=== PATIENT | female | born 1965 | race Caucasian/White ===

== ENCOUNTER → 2018-09-18 15:10 | Outpatient (CLI) | payer OTHER, SELFPAY ==
--- NOTE | 2018-09-18 | DI.MG.S_ITS ---
BILATERAL DIGITAL SCREENING MAMMOGRAM 3D/2D WITH CAD: 09/18/2018 CLINICAL: Routine screening. Comparison is made to exams dated: 09/14/2016 mammogram and 09/22/2011 mammogram - [facility]. The tissue of both breasts is heterogeneously dense. This may lower the sensitivity of mammography. Current study was also evaluated with a Computer Aided Detection (CAD) system. No significant masses, calcifications, or other findings are seen in either breast. There has been no significant interval change. IMPRESSION: NEGATIVE There is no mammographic evidence of malignancy. A 1 year screening mammogram is recommended. This exam was interpreted at Station ID: [id number]. NOTE: For mammograms, a report in lay terms will be sent to the patient. Approximately 15% of breast malignancies will not be visualized mammographically. In the management of a palpable breast mass, a negative mammogram must not discourage biopsy of a clinically suspicious lesion. Electronically Signed By: Tamia donnelly/ayaz:09/18/2018 16:55:33 letter sent: Normal Exam ACR BI-RADS Category 1: Negative [id number]
== END ==
PROVIDERS: PCP Family Medicine; Visit Provider Family Medicine
DX: Z12.31 Encounter for screening mammogram for malignant neoplasm of breast (principal)
CPT/HCPCS: 77063; 77067

== ENCOUNTER 2018-11-18 14:23 | Emergency (ER) | payer OTHER, SELFPAY ==
[2018-11-18 16:23] VITALS: BP 148/101; PULSE 93; RESP 16; TEMP 36.9; O2SAT 99
--- NOTE | 2018-11-18 16:34 | DI.RAD.S_ITS ---
PROCEDURE: XR CERVICAL SPINE 2V OR 3V INDICATIONS: neck pain, slipped disk TECHNIQUE: 3 views of the cervical spine were acquired. COMPARISON: None. FINDINGS: Bones: No fractures or dislocations to the T1 level. The lateral masses of C1 appear intact on the odontoid view. There is straightening of the cervical lordosis. There is minimal anterolisthesis at C4-C5 and T1-T2. There is minimal retrolisthesis at C5-C6. Multilevel disc space narrowing is demonstrated including moderate narrowing at C5-C6 with endplate osteophytosis and sclerosis. There is also mild multilevel facet arthropathy. No suspicious bony lesions. Soft tissues: No prevertebral soft tissue swelling. IMPRESSION: 1. No fracture or subluxation. 2. Multilevel degenerative changes including moderate degenerative disc disease at C5-C6. Dictated by: Donell Johnson M.D. on 11/18/2018 at 16:13 Approved by: Donell Johnson M.D. on 11/18/2018 at 16:14
[2018-11-18 18:14] VITALS: BP 140/79; PULSE 74; RESP 16
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
== END 2018-11-18 18:14 | disposition home or self-care (01) ==
PROVIDERS: Emergency Provider Internal Medicine; PCP Family Medicine
DX: M54.12 Radiculopathy, cervical region (principal); S46.812A Strain of other muscles, fascia and tendons at shoulder and upper arm level, left arm, initial encounter; R20.0 Anesthesia of skin
CPT/HCPCS: 72040; 93005; 99282; 99284

== ENCOUNTER → 2018-12-05 16:05 | Outpatient (CLI) | payer OTHER, SELFPAY ==
--- NOTE | 2018-12-05 16:06 | DI.MRI.S_ITS ---
PROCEDURE: MR CERVICAL SPINE WO CON INDICATIONS: Neck stiffness. Left shoulder pain radiating down left arm TECHNIQUE: Noncontrast sagittal T1 spin echo and T2 fast spin echo, sagittal STIR, foraminal oblique sagittal T2 fast spin echo, and axial gradient echo or T2 fast spin echo through the cervical spine. COMPARISON: [facility], CR, XR CERVICAL SPINE 2V OR 3V, 11/18/2018, 16:40. FINDINGS: Image quality: Diagnostic, with note made of motion artifact. Alignment and Curvature: There is straightening of the normal cervical lordosis. Minimal retrolisthesis is seen at the C5-C6 level. Bone Marrow: Marrow demonstrates normal overall signal. Spinal Cord: Visualized spinal cord has normal size and signal. No cerebellar tonsillar herniation. Paraspinous Soft Tissues: No paravertebral masses. Prevertebral soft tissues are normal in thickness. C2-C3: Normal appearance. C3-C4: Mild loss of disc height is seen. Loss of disc signal is seen. Mild to moderate disc osteophyte complex is seen, which is eccentric to the left. There is mild left-sided and moderate right-sided facet hypertrophy seen. There is moderate to severe left-sided neural foraminal narrowing. No right-sided neural foraminal narrowing. No significant central canal narrowing is seen. C4-C5: The disc height is well-preserved. Loss of disc signal is seen at this level. A mild degree of generalized disc osteophyte complex is seen. There is mild right-sided and moderate left-sided facet hypertrophy seen. There is moderate to severe left-sided and minimal right-sided neural foraminal narrowing seen. No central canal narrowing is seen. C5-C6: Moderate loss of disc height is seen. Loss of disc signal is seen. At least moderate disc osteophyte complex is seen. Moderate facet joint hypertrophy is seen. There is moderate right-sided and moderate to severe left-sided neural foraminal narrowing seen. Moderate to severe central canal narrowing is seen, with associated mass effect on the ventral spinal cord. C6-C7: The disc height is well-preserved. Loss of disc signal is seen at this level. Mild to moderate disc osteophyte complex is seen. There is moderate left-sided and no right-sided neural foraminal narrowing. No significant central canal narrowing is seen. C7-T1: The disc height is well-preserved. Loss of disc signal is seen at this level. A mild degree of generalized disc osteophyte complex is seen. There is mild to moderate right-sided and no significant left-sided neural foraminal narrowing seen. The central canal is widely patent. IMPRESSION: Multiple levels of cervical spine degenerative change are seen, which are most prominent at the C5-C6 level. Dictated by: Ezra Barton M.D. on 12/05/2018 at 16:57 Approved by: Ezra Barton M.D. on 12/05/2018 at 17:01
== END ==
PROVIDERS: PCP Family Medicine; Visit Provider Family Medicine
DX: M43.6 Torticollis (principal); M47.22 Other spondylosis with radiculopathy, cervical region; M25.512 Pain in left shoulder
CPT/HCPCS: 72141

== ENCOUNTER 2019-03-18 09:50 | Day surgery (SDC) | payer OTHER, SELFPAY ==
[2019-03-18] MEDS: SODIUM CHLORIDE 0.9% 1,000 ML 200 ML IV (10:27)
[2019-03-18 10:29] VITALS: BMI 25.7
[2019-03-18 10:33] VITALS: BP 122/84; PULSE 71; RESP 16; TEMP 36.6; O2SAT 99
--- NOTE | 2019-03-18 11:00 | PM.HP.1 ---
History of Present Illness Date Patient Seen: 03/18/19 Time Patient Seen: 11:00 Chief complaint: [id number] Narrative: The patient is a woman here for her 1st screening colonoscopy. No family history of colon cancer. Patient History Medical History No pertinent past medical history (Chronic) Surgical History History of removal of ovarian cyst (Resolved) Status post hysterectomy (Resolved) Social History household members: spouse Smoking Status: Never smoker Family & Social History Social History: household members spouse Tobacco & Substance use: Smoking Status Never smoker alcohol intake frequency 0-2 drinks per day Meds Home Medications Medication Instructions Recorded Confirmed Type conjugated estrogens [Premarin] 0.625 mg VAGINAL TID 03/18/19 03/18/19 History Allergies Allergy/AdvReac Type Severity Reaction Status Date / Time erythromycin base AdvReac nausea, Verified 03/18/19 10:23 vomiting, and stomach cramps Review of Systems Review of Systems All systems reviewed & are unremarkable except as noted in HPI and below Exam Vital Signs (past 8 hours): - 03/18/19 10:33 Temperature 97.9 F Pulse Rate 71 Respiratory Rate 16 Blood Pressure 122/84 Pulse Oximetry 99 Oxygen Delivery Method Room Air Narrative Exam Narrative: Pleasant cooperative patient no apparent distress. Lungs are clear to auscultation. No rales or rhonchi. Heart regular rate and rhythm no murmur gallop. Abdomen is soft nontender without mass. No obvious hernias. Patient is alert and oriented x3. Assessment & Plan Assessment & Plan narrative: The patient for a screening colonoscopy. I have discussed the procedure with them. Risks of bleeding, perforation which would necessitate major operation, failure to find remove all lesions, the potential tattoo were all discussed. All questions were answered. They wished to proceed.
--- NOTE | 2019-03-18 11:02 | PM.PREOP ---
Pre-operative Note Interval Note History & Physical reviewed/Exam performed by Physician: Yes Changes to H&P: No ASA Class (for procedural sedation): I
[2019-03-18] MEDS: fentaNYL 250 MCG/5 ML INJ IV (11:20)
[2019-03-18] MEDS: MIDAZOLAM 5 MG/5 ML VIAL IV (11:21)
[2019-03-18] MEDS: GLUCAGON,HUMAN RECOMBINANT 1 MG/ML VIAL IV (11:27)
--- NOTE | 2019-03-18 11:51 | PM.OP.ENDO ---
Operative Date/Time/Diagnoses Date of procedure: 03/18/19 Time of procedure: 11:51 Pre-op diagnosis: Screening exam. This is her 1st colonoscopy. She is 53 years of age. Post-op diagnosis: same (Sigmoid diverticulosis with significant tortuosity) Procedure & Clinicians Study performed: Colonoscopy Same procedure as scheduled: Yes Indications: Screening Surgeon: Matthew Hall Procedure Notes SCOAP/Timeout: Performed Procedure in detail: The patient was placed in the left lateral decubitus position and underwent IV sedation directed by the surgeon consisting of fentanyl and Versed. Digital exam was unremarkable. The scope was inserted and advanced through the rectum into the sigmoid. I encountered a very sharp turn at this level. After about 10 minutes trying to get around this coronary backed the scope out slowly. I then inserted a pediatric scope and gave the patient glucagon. The patient had been repositioned and I did that once again. This time of is able to get through the tortuous area of the colon. I continued on into the Descending, transverse, and ascending colon. No lesions were seen. The cecum was reached identified by the ileocecal valve and the appendiceal opening. The ileocecal valve was successfully cannulated. The terminal ileum was normal in appearance. The scope was gradually brought out. No Polyps were found. The scope ultimately was retroflexed in the rectum. The appearance was normal except for some very minor scarring. The scope was removed and the patient tolerated the procedure well. Prep was excellent Scope withdrawal time: 10.5 minutes Sedation minutes: 41 Findings: diverticulosis (Sigmoid with tortuosity) Specimen(s): none sent Complications: none Recommendations: Colonscopy in 10 years Follow up: as needed Disposition: PACU
[2019-03-18 11:54] VITALS: BP 133/85; PULSE 84; RESP 14; TEMP 36.7; O2SAT 100
[2019-03-18 11:59] VITALS: BP 121/71; PULSE 64; RESP 16; TEMP 36.4; O2SAT 100
[2019-03-18 12:11] VITALS: BP 120/80; PULSE 77; RESP 16; TEMP 36.2; O2SAT 100
== END 2019-03-18 12:30 | disposition home or self-care (01) ==
PROVIDERS: PCP Family Medicine; Visit Provider Specialist
PROC: 0DJD8ZZ Inspection of Lower Intestinal Tract, Via Natural or Artificial Opening Endoscopic (ICD-10-PCS; CPT 45378; principal; 2019-03-18 10:45)
DX: Z12.11 Encounter for screening for malignant neoplasm of colon (principal); K57.30 Diverticulosis of large intestine without perforation or abscess without bleeding
CPT/HCPCS: 45378; 99152; 99153; J1610; J2250; J3010

== ENCOUNTER → 2020-01-23 11:03 | Outpatient (CLI) | payer OTHER, SELFPAY ==
--- NOTE | 2020-01-23 | DI.US.S_ITS ---
LIMITED ULTRASOUND OF LEFT BREAST: 01/23/2020 CLINICAL: Palpable left breast lump. Comparison is made to exams dated: 01/23/2020 mammogram, 09/18/2018 mammogram - [facility], 09/14/2016 mammogram, 09/29/2011 ultrasound, 09/22/2011 mammogram, and 09/12/2010 mammogram - [facility]. Real-time ultrasound of the left breast 11 o'clock, and retroareolar regions was performed on the area of interest. There is a benign 0.5 cm x 0.4 cm x 0.5 cm oval cyst in the left breast at 11 o'clock anterior depth. This oval cyst is anechoic with a well-defined boundary and posterior acoustic enhancement. This correlates to the reported area of palpable abnormality. Color flow imaging demonstrates that there is no vascularity present. IMPRESSION: BENIGN There is no sonographic evidence of malignancy. The 0.5 cm x 0.4 cm x 0.5 cm oval cyst in the left breast is consistent with a simple cyst and is benign. Clinical followup is recommended for patient's pain and palpable symptoms. A 1 year screening mammogram is recommended. This exam was interpreted at Station ID: [id number]. Electronically Signed By: Donell Johnson M.D. ddp/:01/23/2020 12:32:05 letter sent: Clinical Evaluation Ultrasound BI-RADS: 2 Benign
--- NOTE | 2020-01-23 | DI.MG.S_ITS ---
BILATERAL DIGITAL DIAGNOSTIC MAMMOGRAM 3D/2D: 01/23/2020 CLINICAL: Left breast lump. Comparison is made to exams dated: 09/18/2018 mammogram - [facility], 09/14/2016 mammogram, and 09/22/2011 mammogram - [facility]. The tissue of both breasts is heterogeneously dense. This may lower the sensitivity of mammography. No significant masses, calcifications, or other findings are seen in either breast. IMPRESSION: INCOMPLETE: NEEDS ADDITIONAL IMAGING EVALUATION There is no abnormality seen in the left breast to correspond with the palpable abnormality and pain in the sub-areolar depth, however, ultrasound is recommended. This exam was interpreted at Station ID: [id number]. NOTE: For mammograms, a report in lay terms will be sent to the patient. Approximately 15% of breast malignancies will not be visualized mammographically. In the management of a palpable breast mass, a negative mammogram must not discourage biopsy of a clinically suspicious lesion. Electronically Signed By: Donell parada/ayaz:01/23/2020 12:15:17 ACR BI-RADS Category 0: Incomplete [id number]
== END ==
PROVIDERS: PCP Family Medicine; Referring Provider Physician Assistant Medical; Visit Provider Physician Assistant Medical
DX: R92.8 Other abnormal and inconclusive findings on diagnostic imaging of breast (principal); N60.02 Solitary cyst of left breast
CPT/HCPCS: 76642; 77066; G0279

== ENCOUNTER → 2020-09-21 11:01 | Outpatient (CLI) | payer OTHER, SELFPAY ==
--- NOTE | 2020-09-21 | DI.US.S_ITS ---
PROCEDURE: US ABDOMEN COMPLETE INDICATIONS: Periumbilical pain TECHNIQUE: Real-time scanning was performed of the abdominal and retroperitoneal organs, with image documentation. COMPARISON: None. FINDINGS: Liver: Liver is normal in size and homogeneous in echotexture. Gallbladder: Appears normal Biliary ducts: Intrahepatic bile ducts are non-dilated. Extrahepatic bile duct caliber measures 4 mm. Normal is 6-7 mm or less in diameter, or 10 mm or less post-cholecystectomy. Pancreas: Visualized portions of the pancreas are sonographically normal. Spleen: Spleen is normal in size and homogeneous in echotexture. Kidneys: Kidneys are normal in size and echotexture. Right kidney measures 9.8 cm long; left kidney measures 12.8 cm long. No hydronephrosis or nephrolithiasis. No solid masses. Aorta: Visualized aorta is normal in caliber at less than 3 cm. Iliacs: Proximal common iliac arteries are normal in caliber at less than 2.5 cm. IVC: Intrahepatic inferior vena cava is patent. Miscellaneous: No free abdominal fluid. Note is made of a periumbilical hernia containing what appears to be omentum, which the patient reports is less tender and smaller in size than approximately 1 week ago. This area of current herniation measures up to 3.1 x 3.3 x 4.7 cm. IMPRESSION: Periumbilical hernia, likely containing fat such as omentum, is present measuring up to 3.1 x 3.3 x 4.7 cm. Focal hyperemia not seen, nor is associated focal tenderness but tenderness was present according to the patient at this site last week. Dictated by: Chaitanya Stacy M.D. on 09/21/2020 at 13:33 Approved by: Chaitanya Stacy M.D. on 09/21/2020 at 13:41
== END ==
PROVIDERS: PCP Family Medicine; Referring Provider Family Medicine; Visit Provider Physician Assistant
DX: R10.33 Periumbilical pain (principal); K42.9 Umbilical hernia without obstruction or gangrene
CPT/HCPCS: 76700

== ENCOUNTER 2020-11-08 09:26 | Day surgery (SDC) | payer OTHER, SELFPAY ==
[2020-11-08] VITALS (7 sets, daily range): BP systolic 121–143; BP diastolic 80–90; PULSE 66–103; RESP 10–17; TEMP 36.1–37.1; O2SAT 97–100; BMI 23.2
[2020-11-08] MEDS: SCOPOLAMINE 1 PATCH TOP (09:51)
[2020-11-08] MEDS: ACETAMINOPHEN 325 MG TABLET 975 MG PO (09:51)
--- NOTE | 2020-11-08 10:05 | PM.PREOP ---
Pre-operative Note COVID-19 COVID-19 status: Negative Interval Note History & Physical reviewed/Exam performed by Physician: Yes Changes to H&P: No
[2020-11-08] MEDS: CEFAZOLIN 2 GM/100 ML FROZ.PIGGY IV (10:18)
--- NOTE | 2020-11-08 10:28 | SUR.OPER ---
Supine on padded OR bed, head on pillow, arms secured on padded arm boards at <90 degrees abduction, legs uncrossed, safety belt at thigh, tape over blanket over lower legs.
[2020-11-08] MEDS: BUPIVACAINE 0.5% W/ EPI (PF) 30 ML VIAL INJ (10:34)
[2020-11-08] MEDS: BUPIVACAINE LIPOSOME 266 MG/20 ML VIAL INJ (10:52)
--- NOTE | 2020-11-08 11:38 | PM.OP.1 ---
Operative Date/Time/Diagnoses Date of procedure: 11/08/20 Time of procedure: 11:38 Pre-op diagnosis: Non reducible ventral hernia Post-op diagnosis: other (Ventral hernia with incarcerated preperitoneal fat, with 3 ventral hernia defects, 2 cm x 2 cm in total) Procedure & Clinicians Procedure: Open repair of 3 ventral hernia defects with incarcerated fat Same procedure as scheduled: Yes Indications: Painful non reducible ventral hernia Surgeon: Felecia Mckeon Click Yes if Unassisted: Yes Anesthesia Type: General Operative Notes Findings: Three hernia defects in the ventral midline just superior to the umbilicus, 2 cm x 2 cm in aggregate, with incarcerated preperitoneal fat. Specimen(s): none sent Prosthetic devices, grafts, tissues, transplants, or devices: Bard 8.4 cm Ventralex mesh Estimated Blood Loss (mL): 2 Procedure in detail: The patient was brought to the operating room, placed supine on the operating table, and sequential compression devices were placed on both legs and turned on. Appropriate perioperative antibiotics were given. General anesthesia was induced by the anesthesiologist and the patient was intubated. The abdomen was then prepped and draped in sterile fashion, and a surgical time-out was conducted. At this point local anesthetic was injected using 0.5% Marcaine with epi, at the site of the planned incision. A 3cm vertical incision was then made in the skin of the ventral midline overlying the hernia bulge using a 10 blade. Dissection was then carried down through the dermis and subcutaneous tissue, until the hernia sac was encountered. I dissected circumferentially around the hernia sac, freeing it from the surrounding subcutaneous fat. Once freed, the hernia defect was identified, and the sac protruding through could not be reduced. I dissected the sac, and opened it, finding preperitoneal fat. I divided preperitoneal fat in passed off the table. The remaining stump was then reduced below the fascia. Palpated below the fascia in the preperitoneal space, and found 2 additional defects inferior to the 1st 1. One of these contained incarcerated fat which was also divided and passed off the table. Dissection was continued until all 3 defects were completely reduced. I then enlarged the preperitoneal space, large enough for an 8 cm ventral patch. The 3 hernia defects were combined by dividing thin threads of fascia between them, creating 1 defect which was 2 cm x 2 cm. . A BARD Ventralex 8 cm mesh was brought into the field and placed into the defect, between the peritoneum and the fascia. It was then sutured to the fascia in four corners using 2-0 PDS suture. I then closed the defect with 2-0PDS figure of eights. I then reinforced the closure with 0 Vicryl [id number]. I then injected the fascia with 20mL of 0.5% Marcaine with epi, for a total of 30 mL for the case. I then injected 20mL of Exparel in small aliquots into the fascia. I then closed the subcutaneous fat with 3-0 Vicryl suture, and closed the skin with subcuticular Monocryl 4-0. The skin edges were then sealed with Dermabond. This concluded the procedure. The patient was awakened from anesthesia and extubated. He was transferred onto his [facility]. The patient was then transferred to the postanesthesia care unit in stable condition. He tolerated the procedure well. Needle sponge and instrument counts were correct x2 at the end of the case. Complications: none Post-operative Condition: stable Disposition: PACU
== END 2020-11-08 12:44 | disposition home or self-care (01) ==
PROVIDERS: PCP Family Medicine; Referring Provider Surgery; Visit Provider Surgery
PROC: (CPT 49561; principal; 2020-11-08 10:45)
DX: K43.6 Other and unspecified ventral hernia with obstruction, without gangrene (principal)
CPT/HCPCS: 49561; 49568; 82962; C1781; C9290; J0330; J0690; J1100; J1885; J2250; J2405; J2704; J3010

== ENCOUNTER → 2021-03-16 08:09 | Outpatient (CLI) | payer OTHER, SELFPAY ==
[2021-03-16 20:18] LABS: Add Manual Diff / Slide Review NO; Basophils Absolute Auto 0 /uL (0-100); Basophils Percent Auto 0.9 % (0-2); Eosinophils Absolute Auto 100 /uL (0-450); Eosinophils Percent Auto 3.2 % (2-4); Hematocrit 38.9 % (36-46); Hemoglobin 12.6 g/dL (12.0-16.0); Lymphocytes Absolute Auto 1700 /uL (1100-4500); Lymphocytes Percent Auto 39.8 % (25-40); Mean Corpuscular HGB Conc 32.3 % (30-36); Mean Corpuscular Hemoglobin 29.8 PG (26-34); Mean Corpuscular Volume 92.3 fL (80-100); Monocytes Absolute Auto 400 /uL (0-900); Monocytes Percent Auto 8.5 % (3-14); Neutrophils Absolute Auto 2000 /uL (1500-7000); Neutrophils Percent Auto 47.6 % (50-75); Platelet Count 218 X10^3/uL (150-400); Red Blood Cell Count 4.21 X10^6/uL (4.0-5.2); Red Cell Distribution Width 13.3 % (11.6-14.8); White Blood Cell Count 4.2 X10^3/uL (4.5-11.0)
[2021-03-16 20:23] LABS: Alanine Aminotransferase 17 IU/L (<35); Albumin 3.9 g/dL (3.5-5.0); Alkaline Phosphatase 60 U/L (38-126); Aspartate Aminotransferase 26 IU/L (14-36); BUN Creatinine Ratio 20.5 (6-22); Bilirubin Total 0.4 mg/dL (0.2-1.3); Blood Urea Nitrogen 15 mg/dL (7-17); Calcium 9.4 mg/dL (8.4-10.2); Carbon Dioxide 28 mmol/L (22-32); Chloride 107 mmol/L (98-107); Cholesterol 226 mg/dL (140-199); Estimated Glomerular Filt Rate > 60.0 mL/min (>60); Glucose 86 mg/dL (70-100); HEMOLYSIS < 15 (0-50); Potassium 4.2 mmol/L (3.4-5.1); Sodium 140 mmol/L (137-145); Total Protein 5.9 g/dL (6.3-8.2); Triglycerides 79 mg/dL (35-150)
[2021-03-16 20:35] LABS: HDL Cholesterol 123 mg/dL (40-60); LDL Cholesterol Calculated 87 mg/dL (<100)
== END ==
PROVIDERS: PCP Family Medicine; Visit Provider Family Medicine
DX: E78.5 Hyperlipidemia, unspecified (principal)
CPT/HCPCS: 80053; 80061; 85025

== ENCOUNTER → 2022-05-04 11:28 | Outpatient (CLI) | payer OTHER, SELFPAY ==
--- NOTE | 2022-05-04 11:29 | DI.MG.S_ITS ---
BILATERAL DIGITAL SCREENING MAMMOGRAM 3D/2D WITH CAD: 05/04/2022 CLINICAL: Routine screening. Comparison is made to exams dated: 01/23/2020 mammogram, 09/18/2018 mammogram - [facility], and 09/14/2016 mammogram - [facility]. Both breasts are heterogeneously dense, which may obscure small masses (category c / 51-75% glandular tissue). Current study was also evaluated with a Computer Aided Detection (CAD) system. No significant masses, calcifications, or other findings are seen in either breast. There has been no significant interval change. IMPRESSION: NEGATIVE There is no mammographic evidence of malignancy. A 1 year screening mammogram is recommended. Based on the Tyrer Cuzick model (a risk assessment model) the patient's lifetime risk is 13.3% and her 10 year risk is 4.1%. According to the ACR, ACS, and NCCN guidelines, an annual breast MRI exam along with mammogram is recommended if the patient's lifetime risk is 20% or greater. This exam was interpreted at Station ID: [id number]. NOTE: For mammograms, a report in lay terms will be sent to the patient. Approximately 15% of breast malignancies will not be visualized mammographically. In the management of a palpable breast mass, a negative mammogram must not discourage biopsy of a clinically suspicious lesion. Electronically Signed By: Tamia donnelly/ayaz:05/04/2022 14:58:50 letter sent: Normal Exam ACR BI-RADS Category 1: Negative 3341F
== END ==
PROVIDERS: PCP Family Medicine; Referring Provider Physician Assistant Medical; Visit Provider Physician Assistant Medical
DX: Z12.31 Encounter for screening mammogram for malignant neoplasm of breast (principal)
CPT/HCPCS: 77063; 77067

== ENCOUNTER → 2023-05-28 11:31 | Outpatient (CLI) | payer OTHER, SELFPAY ==
--- NOTE | 2023-05-28 | DI.MG.S_ITS ---
BILATERAL DIGITAL SCREENING MAMMOGRAM 3D/2D WITH CAD: 05/28/2023 CLINICAL: Routine screening. Comparison is made to exams dated: 05/04/2022 mammogram, 01/23/2020 mammogram, and 09/18/2018 mammogram - [facility]. Both breasts are heterogeneously dense, which may obscure small masses (category c / 51-75% glandular tissue). Current study was also evaluated with a Computer Aided Detection (CAD) system. No significant masses, calcifications, or other findings are seen in either breast. There has been no significant interval change. IMPRESSION: NEGATIVE There is no mammographic evidence of malignancy. A 1 year screening mammogram is recommended. Based on the Tyrer Cuzick model (a risk assessment model) the patient's lifetime risk is 9.6% and her 10 year risk is 3.1%. According to the ACR, ACS, and NCCN guidelines, an annual breast MRI exam along with mammogram is recommended if the patient's lifetime risk is 20% or greater. This exam was interpreted at Station ID: [id number]. NOTE: For mammograms, a report in lay terms will be sent to the patient. Approximately 15% of breast malignancies will not be visualized mammographically. In the management of a palpable breast mass, a negative mammogram must not discourage biopsy of a clinically suspicious lesion. Electronically Signed By: Scooter dos santos/ayaz:05/28/2023 12:03:09 letter sent: Normal Exam ACR BI-RADS Category 1: Negative 3341F
== END ==
PROVIDERS: PCP Family Medicine; Referring Provider Family Medicine; Visit Provider Family Medicine
DX: Z12.31 Encounter for screening mammogram for malignant neoplasm of breast (principal)
CPT/HCPCS: 77063; 77067

== ENCOUNTER 2024-04-26 13:55 | Emergency (ER) | payer OTHER, SELFPAY ==
[2024-04-26 13:59] VITALS: BP 138/84; PULSE 72; RESP 18; TEMP 36.4; O2SAT 99; BMI 25.0
--- NOTE | 2024-04-26 15:38 | ED_ITS ---
HPI - Eye Problem General Chief complaint: Eye Problems Stated complaint: scrath or something in right eye Time Seen by Provider: 04/26/24 15:30 Source: patient and family Mode of arrival: Ambulatory History of Present Illness HPI Narrative: 58-year-old female was looking into a [employer] last night, felt a scratch to her right eye from a leaf, does not wear glasses or contacts, persisting pain to that right eye, no visual disturbance. No discharge. No blunt force trauma. No visual disturbance. No purulent discharge. No other facial injuries. She has not having itching or hives or obvious swelling, no obvious allergic juliette ction to the contact to her eye. Related Data Home Medications Medication Instructions Recorded Confirmed epinephrine 0.3 mg/0.3 mL 0.3 mg IM ONCE 01/24/21 11/30/23 injection, auto-injector (EpiPen 2-Yuriy) Previous Rx's Medication Instructions Recorded estradiol 0.01% (0.1 mg/gram) See Rx Instructions vaginal 2XW 09/12/23 vaginal cream (Estrace) #42.5 grams estradiol 2 mg (7.5 mcg/24 hour) 1 vag ring vaginal [id number] #1 ea 09/13/23 vaginal ring (Estring) lidocaine 5 % topical patch 1 patch topical DAILY #15 ea 10/03/23 (Lidoderm) gabapentin 600 mg tablet 600 mg PO DAILY RLS #90 tabs 11/15/23 codeine 10 mg-guaifenesin 100 mg/5 See Rx Instructions PO ONCE #120 mL 01/31/24 mL oral liquid gentamicin 0.3 % eye drops 1 drp EAR-RIGHT TID corneal 04/26/24 abrasion 7 days #5 mL sulfacetamide sodium 10 % eye drops 1 drp EYE-RIGHT TID corneal 04/26/24 abrasion 7 days #15 mL Allergies Allergy/AdvReac Type Severity Reaction Status Date / Time erythromycin base AdvReac nausea, Verified 11/30/23 15:32 vomiting, and stomach cramps Review of Systems Review of Systems Narrative: see HPI Patient History Medical History (Updated 04/26/24 @ 16:18 by Jim Crespo MD) Atrophic vulvovaginitis Dyspareunia in female Sigmoid diverticulosis Ventral hernia without obstruction or gangrene No pertinent past medical history Surgical History History of colonoscopy History of laparotomy History of removal of ovarian cyst Status post hysterectomy Family History Mother Cancer Father Cancer Social History marital status: household members: spouse occupational status: employed Smoking Status: Never smoker alcohol intake: current substance use type: does not use Smoking Status: Never smoker alcohol intake frequency: 0-2 drinks per day Substance Use Type: does not use Exam Narrative Exam Narrative: GENERAL: Well-developed patient, in mild distress. HEAD: Atraumatic. Normocephalic. EYES: Pupils equal round and reactive. Extraocular motions intact. No scleral icterus. No injection or drainage. Proparacaine topical to affected right eye, fluorescein exam, Wood's lamp exam, she does have a small 8 o'clock position (lower right) small corneal abrasion, with no obvious flow of aqueous fluid from anterior chamber. This small corneal abrasion does not cover the pupil, is right lateral lower in relation to the pupil. No foreign bodies obvious on inspection under upper lip or lower lip. ENT: Nose without bleeding, purulent drainage. Throat without erythema, tonsillar hypertrophy or exudate. Airway patent. NECK: Trachea midline. Non tender CARDIOVASCULAR: Regular rate and rhythm without murmurs, gallops, or rubs. RESPIRATORY: Clear to auscultation. Breath sounds equal bilaterally. No wheezes, rales, or rhonchi. GASTROINTESTINAL: Abdomen soft, non-tender, nondistended. EXTREMITIES: No obvious deformities or limited range of motion BACK: Nontender without deformity or crepitance. No flank tenderness. NEURO: AOx3. Nonfocal gross motor function SKIN: No rash or erythema of visible areas Initial Vital Signs Initial Vital Signs: Vital Signs Temperature 97.6 F 04/26/24 13:59 Pulse Rate 72 04/26/24 13:59 Respiratory Rate 18 04/26/24 13:59 Blood Pressure 138/84 04/26/24 13:59 Pulse Oximetry 99 04/26/24 13:59 Oxygen Delivery Method Room Air 04/26/24 13:59 Course Orders Ordered: Discontinued Medications Diphtheria/Tetanus/Acell Pertussis (Tet,Diph,Pertuss(Acell),Vac/Pf 0.5 Ml Syringe) 0.5 ml IM .ONCE ONE Stop: 04/26/24 16:14 Last Admin: 04/26/24 16:32 Dose: 0.5 ml Documented By: NATHEN Fluorescein Sodium (Fluorescein 1 Mg Strip) 1 mg EYE-RIGHT NOW ONE Stop: 04/26/24 15:44 Last Admin: 04/26/24 15:56 Dose: 1 mg Documented By: NATHEN(2) Proparacaine HCl (Proparacaine 0.5% Ophth Jeannie) 1 drops EYE-BOTH NOW ONE Stop: 04/26/24 15:31 Last Admin: 04/26/24 15:55 Dose: 1 drop Documented By: NATHEN(2) Vital Signs Vital signs: Vital Signs - 8 hr 04/26/24 13:59 Temperature 97.6 F Pulse Rate 72 Respiratory Rate 18 Blood Pressure 138/84 Pulse Oximetry 99 Oxygen Delivery Method Room Air MDM - Eye Problem MDM Narrative Medical decision making narrative: Right eye foreign body sensation, after leaning down to look at his kidney plant, brushing up against a leaf of his kidney plant that made contact with the right eye, no hives or obvious allergic reaction. No other injuries. Fluorescein Wood's lamp exam shows small corneal abrasion right lateral position not over the pupil, no aqueous flow from anterior chamber. We discussed topical antibiotics and close follow up, she lives on [facility]. She is allergic to erythromycin, which is unfortunate since we have erythromycin ointment available only for I treatment here. We will call in prescription for sulfacetamide antibacterial to local pharmacy, as they are hoping to catch early evening [place] back to [place]. Advised recheck in clinic on Sunday, or with eye clinic on [facility], versus [facility]. left early to fill the antibiotic prescription, patient then discharged with home. Late entry: local pharmacy did not have sulfacetamide eyedrops, but did have gentamicin antibiotic eyedrops, prescription was revised for gentamicin ophthalmic drops to use until eye clinic follow up. Discharge Plan Departure Patient Disposition: Home Clinical Impression: Corneal abrasion Activity Restrictions/Additional Instructions: Right eye pain since brushing up against a zucchini plant leave that poked you in the right eye last night, foreign body sensation. No eye protection or contact lenses worn at the time of injury. No other facial injuries. No hives or itching or allergic reaction like symptoms. On exam after numbing drops placed, fluorescein contrast added, with magnification would labs evaluation there did seem to be a small scratch at about 4 o'clock position from your perspective (lower right outside) cornea that did not directly cover the pupil. The abrasion was fairly small, unclear if there is any retained foreign body material within that small abrasion. There was no flow of aqueous fluid from the anterior chamber that was obvious on examination. No other foreign bodies seen on inspection. Consider topical antibiotics, allergy noted to oral erythromycin, we will avoid erythromycin ophthalmic ointment for now, which was the only available in our ER stalk. Prescription sent for sulfacetamide drops to use in the affected eye to help prevent infection, 1 drop 3 times daily for now. Consider recheck on Sunday morning in your home [facility] area, at eye Clinic, consider Rashad son evaluation if you can be worked in there. [facility] could consider ophthalmology follow up on the [facility] with Dr. Mirza, her clinic contact information provided, although hopefully can be managed on [place] without any secondary referrals to Ophthalmology on the [facility]. Corneal abrasions can be tetanus prone, you had not had a vaccination for 5 years or more, intramuscular tetanus shot updated. Follow up with eye clinic on Sunday to have another examination, also with enhanced magnification to get better views to make sure there is no foreign body materials wedged in the cornea that might need retrieval. Return to this/nearest emergency department for any change worsening symptoms or any concerns prior to that visit Prescriptions: New sulfacetamide sodium 10 % drops 1 drp EYE-RIGHT TID 7 Days Qty: 15 0RF gentamicin 0.3 % drops 1 drp EAR-RIGHT TID 7 Days Qty: 5 0RF No Action gabapentin 600 mg tablet 600 mg PO DAILY Qty: 90 3RF Rx Instructions: Take at 5pm daily codeine-guaifenesin 10-100 mg/5 mL liquid See Rx Instructions PO ONCE Qty: 120 0RF Rx Instructions: Take 5-10 cc every 6 hours as needed for cough lidocaine [Lidoderm] 5 % adhesive patch,medicated 1 patch topical DAILY Qty: 15 5RF Rx Instructions: leave on most painful area for up to 12 hrs epinephrine [EpiPen 2-Yuriy] 0.3 mg/0.3 mL auto-injector 0.3 mg IM ONCE Rx Instructions: as a single dose estradiol [Estrace] 0.01 % (0.1 mg/gram) cream See Rx Instructions vaginal 2XW Qty: 42.5 2RF Rx Instructions: 1/2 gm 2 x weekly at introitus/vulvar tissue Estring 2 mg (7.5 mcg /24 hour) ring 1 vag ring vaginal [id number] Qty: 1 4RF Referrals: Polina Mirza MD [Physician] - Curt Salmon MD [Primary Care Provider] - Stand Alone Forms: Patient Portal/API
[2024-04-26] MEDS: PROPARACAINE 0.5% OPHTH SOL 1 DROPS EYE-BOTH (15:55)
[2024-04-26] MEDS: FLUORESCEIN 1 MG STRIP EYE-RIGHT (15:56)
[2024-04-26] MEDS: TET,DIPH,PERTUSS(ACELL),VAC/PF 0.5 ML SYRINGE IM (16:32)
== END 2024-04-26 16:56 | disposition home or self-care (01) ==
PROVIDERS: Emergency Provider Emergency Medicine; PCP Family Medicine
DX: S05.01XA Injury of conjunctiva and corneal abrasion without foreign body, right eye, initial encounter (principal); Z23 Encounter for immunization
CPT/HCPCS: 90471; 99283; 90715

== ENCOUNTER → 2024-06-25 11:20 | Outpatient (CLI) | payer BC, SELFPAY ==
--- NOTE | 2024-06-25 11:21 | DI.MG.S_ITS ---
BILATERAL DIGITAL SCREENING MAMMOGRAM 3D/2D WITH CAD: 06/25/2024 CLINICAL: Routine screening. Comparison is made to exams dated: 05/28/2023 mammogram, 05/04/2022 mammogram, 09/18/2018 mammogram, and 01/23/2020 mammogram - [facility]. The breasts are heterogeneously dense, which may obscure small masses (category c / 51-75% glandular tissue). Current study was also evaluated with a Computer Aided Detection (CAD) system. No significant masses, calcifications, or other findings are seen in either breast. There has been no significant interval change. IMPRESSION: NEGATIVE There is no mammographic evidence of malignancy. A 1 year screening mammogram is recommended. Based on the Tyrer Cuzick model (a risk assessment model) the patient's lifetime risk is 9.4% and her 10 year risk is 3.3%. According to the ACR, ACS, and NCCN guidelines, an annual breast MRI exam along with mammogram is recommended if the patient's lifetime risk is 20% or greater. This exam was interpreted at Station ID: [id number]. NOTE: For mammograms, a report in lay terms will be sent to the patient. Approximately 15% of breast malignancies will not be visualized mammographically. In the management of a palpable breast mass, a negative mammogram must not discourage biopsy of a clinically suspicious lesion. Electronically Signed By: Flash lomeli/ayaz:06/25/2024 17:40:54 letter sent: Normal Exam ACR BI-RADS Category 1: Negative
== END ==
PROVIDERS: PCP Family Medicine; Referring Provider Family Medicine; Visit Provider Family Medicine
DX: Z12.31 Encounter for screening mammogram for malignant neoplasm of breast (principal); R92.333 Mammographic heterogeneous density, bilateral breasts
CPT/HCPCS: 77063; 77067

== ENCOUNTER → 2025-03-16 12:23 | Outpatient (CLI) | payer BC, SELFPAY ==
--- NOTE | 2025-03-16 12:25 | DI.MRI.S_ITS ---
PROCEDURE: MR CERVICAL SPINE WO CON INDICATIONS: neck pain, chronic TECHNIQUE: Noncontrast sagittal T1 spin echo and T2 fast spin echo, sagittal STIR, foraminal oblique sagittal T2 fast spin echo, and axial gradient echo or T2 fast spin echo through the cervical spine. COMPARISON: None. FINDINGS: Image quality: Excellent Straightening of the cervical spine. Mild anterolisthesis C4 on C5. Mild retrolisthesis of C5 on C6, C6 on C7. Mild anterolisthesis C7 on T1 and T1 on T2. Vertebral body height of the cervical spine are well maintained. Mild fibrovascular end plate change at C6-7. There is marrow edema of the left C2-3 facet, extending to the left aspect of C2-3 vertebral body3, favoring degenerative. Vertebral hemangioma in T3 vertebral body. No suspicious marrow replacing lesion. Multilevel disc bulge and disc desiccation. Cervical cord signal: Normal in signal Axial images: C2-3: Mild bilateral facet arthropathy. No stenosis. C3-4: Mild posterior disc osteophyte complex. Left uncovertebral arthropathy. Severe left facet arthropathy. No central canal stenosis. Severe left neural foraminal stenosis. No right neural foraminal stenosis. C4-5: Left uncovertebral arthropathy. Mild left neural foraminal stenosis. No right neural foraminal stenosis. No central canal stenosis. C5-6: Posterior disc osteophyte complex. Mild central canal stenosis. Left uncovertebral arthropathy. Mild left neural foraminal stenosis. No right neural foraminal stenosis. C6-7: Posterior disc osteophyte complex. Mild central canal stenosis. Left uncovertebral arthropathy. Mild bilateral facet arthropathy. Moderate left neural foraminal stenosis. No right neural foraminal stenosis. C7-T1: Moderate right facet arthropathy. Mild right neural foraminal stenosis. No left neural foraminal stenosis. No central canal stenosis. Other soft tissue findings: Unremarkable IMPRESSION: 1. Multilevel degenerative changes of the cervical spine, most C3-4, where there is severe left neural foraminal stenosis, grossly unchanged from prior exam. 2. Multilevel mild central canal stenosis as described above. Dictated by: Angelica Mendez M.D. on 03/16/2025 at 14:09 Approved by: Angelica Mendez M.D. on 03/16/2025 at 14:20
== END ==
PROVIDERS: PCP Family Medicine; Referring Provider Family Medicine; Visit Provider Family Medicine
DX: M48.02 Spinal stenosis, cervical region (principal); M47.22 Other spondylosis with radiculopathy, cervical region; M25.78 Osteophyte, vertebrae
CPT/HCPCS: 72141